=== PATIENT | female | born 1990 | race African-American/Black ===

== ENCOUNTER 2018-12-08 14:41 | Emergency (ER) | payer OTHER ==
[~2018-12-08 14:41] MED LIST: LAM25 PO
== END 2018-12-08 16:20 | disposition left against medical advice (07) ==
LOC: ER 14:41
DX: Z53.21 Procedure and treatment not carried out due to patient leaving prior to being seen by health care provider (principal)

== ENCOUNTER 2018-12-22 23:54 | Emergency (ER) | payer OTHER ==
[~2018-12-22] VITALS: Ht 152.4 cm; Wt 64.3 kg
[2018-12-23 03:57] VITALS: BP 113/71
== END 2018-12-23 04:18 | disposition home or self-care (01) ==
LOC: ER 23:54
DX: F32.9 Major depressive disorder, single episode, unspecified (principal); R45.851 Suicidal ideations; F14.10 Cocaine abuse, uncomplicated; F12.10 Cannabis abuse, uncomplicated; F17.200 Nicotine dependence, unspecified, uncomplicated; Z98.890 Other specified postprocedural states
CPT/HCPCS: 99284

== ENCOUNTER 2019-05-18 18:17 | Emergency (ER) | payer OTHER, MEDICAID ==
[~2019-05-18] VITALS: Ht 152.4 cm; Wt 66.0 kg
[2019-05-18] MEDS ORDERED: ALPRAZOLAM 0.5 MG TABLET PO ONE (20:30)
[2019-05-18 21:24] VITALS: BP 119/68
== END 2019-05-18 21:26 | disposition home or self-care (01) ==
LOC: ER 18:17
DX: F41.9 Anxiety disorder, unspecified (principal); F32.9 Major depressive disorder, single episode, unspecified
CPT/HCPCS: 81025; 99284

== ENCOUNTER 2019-06-19 02:47 | Emergency (ER) | payer OTHER, MEDICAID ==
[~2019-06-19] VITALS: Ht 152.4 cm; Wt 62.0 kg
[2019-06-19 03:31] VITALS: BP 122/73
== END 2019-06-19 05:55 | disposition left against medical advice (07) ==
LOC: ER 02:47
DX: Z53.21 Procedure and treatment not carried out due to patient leaving prior to being seen by health care provider (principal); F31.9 Bipolar disorder, unspecified; F17.200 Nicotine dependence, unspecified, uncomplicated

== ENCOUNTER 2019-08-19 21:51 | Emergency (ER) | payer OTHER, MEDICAID ==
[~2019-08-19] VITALS: Ht 152.4 cm; Wt 66.0 kg
[2019-08-20 01:39] LABS: EOSINOPHILS % 6.9 % (0.0-5.0); HEMOGLOBIN. 12.6 g/dL (12.0-16.0); LYMPHOCYTES % 41.3 % (20.0-50.0); MEAN CORPUSCULAR HEMOGLOBIN 32.1 pg (28.0-32.0); MEAN CORPUSCULAR VOLUME 91.4 fL (81.0-99.0); MEAN PLATELET VOLUME 7.1 fl (7.4-10.4); MONOCYTES % 5.8 % (2.0-8.0); PLATELET 290 x1000/uL (130-400); RED BLOOD CELL COUNT 3.94 mill/uL (4.2-5.4); RED CELL DISTRIBUTION WIDTH 12.6 % (11.6-14.6)
[2019-08-20 01:42] LABS: ETHANOL BLOOD < 10 mg/dL
[2019-08-20 01:44] LABS: CHLORIDE 107 mEq/L (98-107)
[2019-08-20 01:45] LABS: *AMPHETAMINES SCREEN URINE NEGATIVE (NEGATIVE); *BARBITURATES SCREEN URINE NEGATIVE (NEGATIVE); *BENZODIAZEPINES SCREEN URINE NEGATIVE (NEGATIVE); METHADONE URINE SCREEN NEGATIVE (NEGATIVE); OPIATES URINE SCREEN NEGATIVE (NEGATIVE); PHENCYCLIDINE URINE SCREEN NEGATIVE (NEGATIVE)
[2019-08-20 02:10] LABS: *COCAINE SCREEN URINE PRESUMTIVE POSITIVE (NEGATIVE); CANNABINOID URINE SCREEN PRESUMTIVE POSITIVE (NEGATIVE)
[2019-08-20 09:44] VITALS: BP 115/74
== END 2019-08-20 10:03 ==
LOC: ER 21:51
DX: R45.851 Suicidal ideations (principal); F31.9 Bipolar disorder, unspecified; F12.10 Cannabis abuse, uncomplicated; F15.10 Other stimulant abuse, uncomplicated; F14.10 Cocaine abuse, uncomplicated; Z79.899 Other long term (current) drug therapy
CPT/HCPCS: 36415; 80053; 80305; 80307; 80320; 80329; 81025; 85025; 99285; G0480

== ENCOUNTER 2019-12-20 15:51 | Emergency (ER) | payer MEDICARE, MEDICAID, OTHER ==
[~2019-12-20] VITALS: Ht 172.7 cm; Wt 55.0 kg
[2019-12-20] MEDS ORDERED: PENICILLIN G BENZATHINE 2,400,000 UNITS/4ML SYR IM ONE (17:15)
[2019-12-20 17:49] VITALS: BP 117/72
== END 2019-12-20 17:52 | disposition home or self-care (01) ==
LOC: ER 15:51
DX: F41.9 Anxiety disorder, unspecified (principal); F12.10 Cannabis abuse, uncomplicated; Z20.2 Contact with and (suspected) exposure to infections with a predominantly sexual mode of transmission; Z79.899 Other long term (current) drug therapy
CPT/HCPCS: 96372; 99283; J0561

== ENCOUNTER 2020-01-01 12:07 | Emergency (ER) | payer MEDICARE, OTHER, MEDICAID ==
[~2020-01-01] VITALS: Ht 157.5 cm; Wt 82.0 kg
[2020-01-01] MEDS ORDERED: SODIUM CHLORIDE 0.9% 1,000 ML IV ONE (12:26)
[2020-01-01 13:04] LABS: CHLORIDE 109 mEq/L (98-107)
[2020-01-01 13:23] VITALS: BP 112/56
[2020-01-01 13:27] LABS: BASOPHILS % 1.3 % (0.0-2.0); EOSINOPHILS % 2.8 % (0.0-5.0); HEMATOCRIT. 39.7 % (36.0-48.0); HEMOGLOBIN. 13.7 g/dL (12.0-16.0); LYMPHOCYTES % 43.6 % (20.0-50.0); MEAN PLATELET VOLUME 7.7 fl (7.4-10.4); MONOCYTES % 6.2 % (2.0-8.0); NEUTROPHILS % 46.1 % (40.0-76.0); PLATELET 276 x1000/uL (130-400); RED BLOOD CELL COUNT 4.57 mill/uL (4.2-5.4); RED CELL DISTRIBUTION WIDTH 13.6 % (11.6-14.6)
[2020-01-01] MEDS ORDERED: PENICILLIN G BENZATHINE 2,400,000 UNITS/4ML SYR IM ONE (15:00)
== END 2020-01-01 15:50 | disposition home or self-care (01) ==
LOC: ER 12:07
DX: R53.1 Weakness (principal); F31.9 Bipolar disorder, unspecified; F17.200 Nicotine dependence, unspecified, uncomplicated; Z87.42 Personal history of other diseases of the female genital tract
CPT/HCPCS: 36415; 80053; 85025; 96372; 99283; J0561; J7030

== ENCOUNTER 2020-04-20 22:46 | Emergency (ER) | payer MEDICARE, OTHER, MEDICAID ==
[~2020-04-20] VITALS: Ht 170.2 cm; Wt 68.0 kg
[2020-04-21 00:44] LABS: CLARITY URINE CLOUDY (CLEAR); COLOR URINE YELLOW (YELLOW); KETONES URINE NEGATIVE (NEGATIVE); LEUKOCYTE ESTERASE URINE 1+ (NEGATIVE); NITRITE URINE NEGATIVE (NEGATIVE); OCCULT BLOOD URINE NEGATIVE (NEGATIVE); PROTEIN URINE NEGATIVE (NEGATIVE); SPECIFIC GRAVITY URINE 1.021 (1.005-1.030)
[2020-04-21 01:00] LABS: *AMPHETAMINES SCREEN URINE NEGATIVE (NEGATIVE)
[2020-04-21 01:01] LABS: *BARBITURATES SCREEN URINE NEGATIVE (NEGATIVE); *BENZODIAZEPINES SCREEN URINE NEGATIVE (NEGATIVE); *COCAINE SCREEN URINE NEGATIVE (NEGATIVE); METHADONE URINE SCREEN NEGATIVE (NEGATIVE); OPIATES URINE SCREEN NEGATIVE (NEGATIVE); PHENCYCLIDINE URINE SCREEN NEGATIVE (NEGATIVE)
[2020-04-21 01:03] LABS: CANNABINOID URINE SCREEN PRESUMTIVE POSITIVE (NEGATIVE)
[2020-04-21 01:07] LABS: BASOPHILS % 1.1 % (0.0-2.0); EOSINOPHILS % 5.4 % (0.0-5.0); HEMATOCRIT. 36.1 % (36.0-48.0); HEMOGLOBIN. 12.7 g/dL (12.0-16.0); LYMPHOCYTES % 50.7 % (20.0-50.0); MEAN CORPUSCULAR HEMOGLOBIN 32.3 pg (28.0-32.0); MEAN CORPUSCULAR VOLUME 91.6 fL (81.0-99.0); NEUTROPHILS % 36.8 % (40.0-76.0); PLATELET 244 x1000/uL (130-400); RED BLOOD CELL COUNT 3.95 mill/uL (4.2-5.4); RED CELL DISTRIBUTION WIDTH 12.9 % (11.6-14.6)
[2020-04-21 01:14] LABS: CHLORIDE 109 mEq/L (98-107)
[2020-04-21 01:19] LABS: ETHANOL BLOOD < 10 mg/dL
[2020-04-21] MEDS ORDERED: FENTANYL CITRATE/PF 50MCG/ML 2ML VIAL IV ONE (02:00)
[2020-04-21 06:00] VITALS: BP 106/60
== END 2020-04-21 09:45 ==
LOC: ER 22:46
DX: R45.851 Suicidal ideations (principal); F41.9 Anxiety disorder, unspecified; F12.10 Cannabis abuse, uncomplicated; F31.9 Bipolar disorder, unspecified; Z88.8 Allergy status to other drugs, medicaments and biological substances
CPT/HCPCS: 36415; 80053; 80305; 80307; 80320; 80329; 81003; 85025; 93005; 99285; G0480

== ENCOUNTER 2020-11-03 02:17 | Emergency (ER) | payer MEDICARE, OTHER, MEDICAID ==
[~2020-11-03] VITALS: Ht 160 cm; Wt 60.0 kg
[2020-11-03 06:20] LABS: BASOPHILS % 0.4 % (0.0-2.0); EOSINOPHILS % 1.1 % (0.0-5.0); HEMATOCRIT. 39.8 % (36.0-48.0); HEMOGLOBIN. 13.3 g/dL (12.0-16.0); LYMPHOCYTES % 20.6 % (20.0-50.0); MEAN CORPUSCULAR HEMOGLOBIN 30.5 pg (28.0-32.0); MEAN CORPUSCULAR VOLUME 91.2 fL (81.0-99.0); MONOCYTES % 6.4 % (2.0-8.0); NEUTROPHILS % 71.5 % (40.0-76.0); PLATELET 295 x1000/uL (130-400); RED BLOOD CELL COUNT 4.36 mill/uL (4.2-5.4)
[2020-11-03 06:22] LABS: CHLORIDE 110 mEq/L (98-107)
[2020-11-03 06:25] LABS: ETHANOL BLOOD < 10 mg/dL
[2020-11-03 06:33] LABS: HCG SCREEN NEGATIVE
[2020-11-03 07:12] LABS: CLARITY URINE CLOUDY (CLEAR); COLOR URINE YELLOW (YELLOW); KETONES URINE TRACE (NEGATIVE); LEUKOCYTE ESTERASE URINE NEGATIVE (NEGATIVE); NITRITE URINE NEGATIVE (NEGATIVE); OCCULT BLOOD URINE NEGATIVE (NEGATIVE); PH URINE 5.5 (4.5-8.0); PROTEIN URINE NEGATIVE (NEGATIVE); SPECIFIC GRAVITY URINE 1.036 (1.005-1.030)
[2020-11-03 07:21] LABS: *BARBITURATES SCREEN URINE NEGATIVE (NEGATIVE); PHENCYCLIDINE URINE SCREEN NEGATIVE (NEGATIVE)
[2020-11-03 07:22] LABS: *AMPHETAMINES SCREEN URINE PRESUMTIVE POSITIVE (NEGATIVE); *BENZODIAZEPINES SCREEN URINE NEGATIVE (NEGATIVE); *COCAINE SCREEN URINE NEGATIVE (NEGATIVE); CANNABINOID URINE SCREEN PRESUMTIVE POSITIVE (NEGATIVE); METHADONE URINE SCREEN NEGATIVE (NEGATIVE); OPIATES URINE SCREEN NEGATIVE (NEGATIVE)
[2020-11-03] MEDS ORDERED: LORAZEPAM 1MG TABLET PO ONE (09:30)
[2020-11-03] MEDS ORDERED: NICOTINE 21MG PATCH TD ONE (09:30)
[2020-11-03 16:05] VITALS: BP 107/68
== END 2020-11-03 16:06 | disposition home or self-care (01) ==
LOC: ER 02:17
DX: R45.851 Suicidal ideations (principal); F17.200 Nicotine dependence, unspecified, uncomplicated; F15.10 Other stimulant abuse, uncomplicated; F12.10 Cannabis abuse, uncomplicated; Z88.5 Allergy status to narcotic agent; Z88.8 Allergy status to other drugs, medicaments and biological substances; Z98.890 Other specified postprocedural states
CPT/HCPCS: 36415; 80053; 80305; 80307; 80320; 80329; 81003; 81025; 84703; 85025; 93005; 99285; G0480

== ENCOUNTER 2021-03-02 09:04 | Emergency (ER) | payer OTHER, MEDICARE, MEDICAID ==
[~2021-03-02] VITALS: Ht 167.6 cm; Wt 100.0 kg
[2021-03-02 10:14] LABS: CLARITY URINE TURBID (CLEAR); COLOR URINE DARK YELLOW (YELLOW); KETONES URINE TRACE (NEGATIVE); LEUKOCYTE ESTERASE URINE NEGATIVE (NEGATIVE); NITRITE URINE NEGATIVE (NEGATIVE); OCCULT BLOOD URINE 3+ (NEGATIVE); PROTEIN URINE 1+ (NEGATIVE); SPECIFIC GRAVITY URINE 1.031 (1.005-1.030)
[2021-03-02 10:18] LABS: BASOPHILS % 0.5 % (0.0-2.0); EOSINOPHILS % 1.8 % (0.0-5.0); HEMATOCRIT. 39.1 % (36.0-48.0); HEMOGLOBIN. 13.5 g/dL (12.0-16.0); LYMPHOCYTES % 27.4 % (20.0-50.0); MEAN CORPUSCULAR HEMOGLOBIN 30.9 pg (28.0-32.0); MEAN CORPUSCULAR VOLUME 89.5 fL (81.0-99.0); MEAN PLATELET VOLUME 6.7 fl (7.4-10.4); MONOCYTES % 6.8 % (2.0-8.0); NEUTROPHILS % 63.5 % (40.0-76.0); PLATELET 341 x1000/uL (130-400); RED BLOOD CELL COUNT 4.37 mill/uL (4.2-5.4); RED CELL DISTRIBUTION WIDTH 13.6 % (11.6-14.6)
[2021-03-02 10:19] LABS: CHLORIDE 111 mEq/L (98-107)
[2021-03-02 10:29] LABS: ETHANOL BLOOD < 10 mg/dL
[2021-03-02 10:31] LABS: *BARBITURATES SCREEN URINE NEGATIVE (NEGATIVE); *BENZODIAZEPINES SCREEN URINE NEGATIVE (NEGATIVE)
[2021-03-02 10:32] LABS: METHADONE URINE SCREEN NEGATIVE (NEGATIVE); OPIATES URINE SCREEN NEGATIVE (NEGATIVE)
[2021-03-02 10:33] LABS: PHENCYCLIDINE URINE SCREEN NEGATIVE (NEGATIVE)
[2021-03-02 10:40] LABS: *AMPHETAMINES SCREEN URINE PRESUMTIVE POSITIVE (NEGATIVE); *COCAINE SCREEN URINE PRESUMTIVE POSITIVE (NEGATIVE); CANNABINOID URINE SCREEN PRESUMTIVE POSITIVE (NEGATIVE)
[2021-03-02] MEDS ORDERED: CEFTRIAXONE SODIUM 500 MG/VIAL IM ONE (10:45)
[2021-03-02] MEDS ORDERED: DOXYCYCLINE HYCLATE 100MG CAPSULE PO ONE (10:45)
[2021-03-02] MEDS ORDERED: DOXY100C2 MT (11:38)
[2021-03-02] MEDS ORDERED: METR-167 MT (11:38)
[2021-03-02 11:41] VITALS: BP 133/79
[2021-03-04 04:07] LABS: NEISSERIA GONORRHOEAE NAA Negative (Negative)
== END 2021-03-02 11:40 | disposition home or self-care (01) ==
LOC: ER 09:04
DX: N93.9 Abnormal uterine and vaginal bleeding, unspecified (principal); F12.10 Cannabis abuse, uncomplicated; F15.10 Other stimulant abuse, uncomplicated; Z88.6 Allergy status to analgesic agent; Z88.8 Allergy status to other drugs, medicaments and biological substances
CPT/HCPCS: 36415; 80053; 80305; 80307; 80320; 80329; 81003; 81025; 85025; 87491; 87591; 96372; 99283; J0696; Z7610; G0480

== ENCOUNTER 2021-04-04 02:40 | Emergency (ER) | payer MEDICARE, OTHER, MEDICAID ==
[~2021-04-04] VITALS: Ht 162.6 cm; Wt 66.0 kg
[~2021-04-04 02:40] MED LIST changes: +DOXY100C5 MT; +METR-167 MT
[2021-04-04 04:21] LABS: BASOPHILS % 0.4 % (0.0-2.0); EOSINOPHILS % 3.1 % (0.0-5.0); HEMATOCRIT. 37.3 % (36.0-48.0); HEMOGLOBIN. 12.7 g/dL (12.0-16.0); LYMPHOCYTES % 45.4 % (20.0-50.0); MEAN CORPUSCULAR VOLUME 91.3 fL (81.0-99.0); MEAN PLATELET VOLUME 6.3 fl (7.4-10.4); NEUTROPHILS % 44.1 % (40.0-76.0); PLATELET 290 x1000/uL (130-400); RED BLOOD CELL COUNT 4.09 mill/uL (4.2-5.4); RED CELL DISTRIBUTION WIDTH 13.2 % (11.6-14.6)
[2021-04-04 04:29] LABS: CHLORIDE 108 mEq/L (98-107)
[2021-04-04 04:33] LABS: ETHANOL BLOOD < 10 mg/dL
[2021-04-04] MEDS ORDERED: OLANZAPINE 5MG TABLET ODT PO ONE (05:30)
[2021-04-04 09:33] LABS: *BARBITURATES SCREEN URINE NEGATIVE (NEGATIVE); *BENZODIAZEPINES SCREEN URINE NEGATIVE (NEGATIVE)
[2021-04-04 09:35] LABS: METHADONE URINE SCREEN NEGATIVE (NEGATIVE); OPIATES URINE SCREEN NEGATIVE (NEGATIVE); PHENCYCLIDINE URINE SCREEN NEGATIVE (NEGATIVE)
[2021-04-04 09:42] LABS: *AMPHETAMINES SCREEN URINE PRESUMTIVE POSITIVE (NEGATIVE); *COCAINE SCREEN URINE PRESUMTIVE POSITIVE (NEGATIVE); CANNABINOID URINE SCREEN PRESUMTIVE POSITIVE (NEGATIVE)
[2021-04-04 18:00] VITALS: BP 124/67
[2021-04-04] MEDS ORDERED: TOPIRAMATE 25MG TABLET PO SCH (21:00)
[2021-04-05] MEDS ORDERED: OLANZAPINE 5MG TABLET PO SCH (09:00)
== END 2021-04-04 19:28 | disposition left against medical advice (07) ==
LOC: ER 03:11
DX: R45.851 Suicidal ideations (principal); F31.9 Bipolar disorder, unspecified; F20.9 Schizophrenia, unspecified; F17.290 Nicotine dependence, other tobacco product, uncomplicated; F12.10 Cannabis abuse, uncomplicated
CPT/HCPCS: 36415; 80048; 80305; 80307; 80320; 80329; 85025; 93005; 99285; G0480

== ENCOUNTER 2022-11-06 13:16 | Emergency (ER) | payer OTHER, MEDICAID ==
[~2022-11-06] VITALS: Ht 165.1 cm; Wt 64.0 kg
[2022-11-06 13:25] VITALS: BP 147/84
== END 2022-11-06 13:55 | disposition left against medical advice (07) ==
LOC: ER 13:49
DX: F22 Delusional disorders (principal); F41.9 Anxiety disorder, unspecified; F12.90 Cannabis use, unspecified, uncomplicated; F31.9 Bipolar disorder, unspecified; F20.9 Schizophrenia, unspecified; Z88.6 Allergy status to analgesic agent
CPT/HCPCS: 99283

== ENCOUNTER 2024-06-12 08:40 | Emergency (ER) | payer OTHER, MEDICAID ==
[~2024-06-12] VITALS: Ht 152.4 cm; Wt 90.0 kg
[2024-06-12 08:46] VITALS: O2SAT 100
[2024-06-12 09:29] LABS: CHLORIDE 105 mEq/L (98-107); POTASSIUM 3.5 mEq/L (3.5-5.1)
[2024-06-12 09:30] LABS: CARBON DIOXIDE 22 mEq/L (21-32); SODIUM 138 mEq/L (136-145)
[2024-06-12 09:31] LABS: CALCIUM 9.6 mg/dL (8.7-10.4)
[2024-06-12] MEDS: MAGNESIUM/ALUMINUM HYDROXIDE/SIMETHICONE 30ML UDC PO STA (09:32)
[2024-06-12 09:34] LABS: BASOPHILS % 0.3 % (0.0-2.0); EOSINOPHILS % 0.1 % (0.0-5.0); HEMATOCRIT. 40.1 % (36.0-48.0); HEMOGLOBIN. 13.5 g/dL (12.0-16.0); LYMPHOCYTES % 15.7 % (20.0-50.0); MEAN CORPUSCULAR HEMOGLOBIN 30.8 pg (28.0-32.0); MEAN CORPUSCULAR HGB CONC 33.6 g/dL (31.0-37.0); MEAN CORPUSCULAR VOLUME 91.7 fL (81.0-99.0); NEUTROPHILS % 75.9 % (40.0-76.0); PLATELET 250 x1000/uL (130-400); RED BLOOD CELL COUNT 4.37 mill/uL (4.2-5.4); RED CELL DISTRIBUTION WIDTH 13.8 % (11.6-14.6); WHITE BLOOD COUNT 16.8 x1000/uL (4.5-11.0)
[2024-06-12 09:35] LABS: GLUCOSE 117 mg/dL (70-105)
[2024-06-12 09:36] LABS: UREA NITROGEN BLOOD 10 mg/dL (9-23)
[2024-06-12 09:37] LABS: ALANINE AMINOTRANSFERASE 57 IU/L (10-49); ALBUMIN 4.8 g/dL (3.2-4.8); ASPARTATE AMINOTRANSFERASE 38 IU/L (<34)
[2024-06-12 09:38] LABS: BILIRUBIN DIRECT 0.1 mg/dL (<=3.0); BILIRUBIN TOTAL 0.5 mg/dL (0.1-1.0); PROTEIN TOTAL 7.7 g/dL (6.0-8.3)
[2024-06-12] MEDS: ONDANSETRON 4MG ODT PO STA (09:47)
[2024-06-12 09:58] LABS: HCG SCREEN NEGATIVE
[2024-06-12] MEDS ORDERED: PIPERACILLIN/TAZO 3.375G/50ML 50 ML IV STA (11:32)
[2024-06-12] MEDS ORDERED: MORPHINE SULFATE 4 MG/ML INJ (FOR IV/IM USE) IV ONE ×2 (11:45→16:15)
[2024-06-12] MEDS: KETOROLAC 15MG/ML VIAL IV ONE (13:19)
[2024-06-12] MEDS: PIPERACILLIN/TAZO 3.375G/50ML 50 ML IV NR (13:19)
[2024-06-12 16:38] VITALS: BP 137/67; PULSE 98; RESP 16; TEMP 37.11408; O2SAT 100
== END 2024-06-12 17:18 | disposition short-term general hospital (02) ==
LOC: ER 08:40 → CANBEDREQ 14:32 → ER 17:18
DX: K37 Unspecified appendicitis (principal); Z88.6 Allergy status to analgesic agent; Z88.5 Allergy status to narcotic agent; Z88.8 Allergy status to other drugs, medicaments and biological substances; Z86.59 Personal history of other mental and behavioral disorders
CPT/HCPCS: 99285; 74176; 96365; 96375; 80076; 80048; 84703; 83690; 85025; 36415; Q0162; J1885; J2543

== ENCOUNTER 2024-12-15 05:41 | Emergency (ER) | payer OTHER, MEDICAID ==
[~2024-12-15] VITALS: Ht 152.4 cm; Wt 73.0 kg
[2024-12-15 05:47] VITALS: O2SAT 98
[2024-12-15 06:30] LABS: BASOPHILS % 0.7 % (0.0-2.0); EOSINOPHILS % 0.7 % (0.0-5.0); HEMATOCRIT. 39.1 % (36.0-48.0); HEMOGLOBIN. 13.7 g/dL (12.0-16.0); LYMPHOCYTES % 38.8 % (20.0-50.0); MEAN CORPUSCULAR HEMOGLOBIN 31.9 pg (28.0-32.0); MEAN CORPUSCULAR VOLUME 91.1 fL (81.0-99.0); MEAN PLATELET VOLUME 7.1 fl (7.4-10.4); MONOCYTES % 6.2 % (2.0-8.0); NEUTROPHILS % 53.6 % (40.0-76.0); PLATELET 306 x1000/uL (130-400); RED CELL DISTRIBUTION WIDTH 13.7 % (11.6-14.6); WHITE BLOOD COUNT 9.3 x1000/uL (4.5-11.0)
[2024-12-15 06:41] LABS: CHLORIDE 107 mEq/L (98-107); POTASSIUM 3.5 mEq/L (3.5-5.1); SODIUM 140 mEq/L (136-145)
[2024-12-15 06:42] LABS: CALCIUM 9.9 mg/dL (8.7-10.4); CARBON DIOXIDE 22 mEq/L (21-32)
[2024-12-15 06:43] LABS: HCG SCREEN NEGATIVE; PROTHROMBIN TIME 10.8 sec (9.6-11.0)
[2024-12-15 06:47] LABS: GLUCOSE 107 mg/dL (70-105); UREA NITROGEN BLOOD 9 mg/dL (9-23)
[2024-12-15 07:05] LABS: TROPONIN I HIGH SENSITIVITY < 4 ng/L (3.0-34)
[2024-12-15] MEDS ORDERED: IBUP-2029 MT (07:13)
[2024-12-15 07:48] VITALS: BP 144/94; PULSE 77; RESP 20; TEMP 36.7; O2SAT 99
== END 2024-12-15 07:53 | disposition home or self-care (01) ==
LOC: ER 05:41
DX: R07.89 Other chest pain (principal); F20.9 Schizophrenia, unspecified; F31.9 Bipolar disorder, unspecified; Z87.891 Personal history of nicotine dependence; Z79.899 Other long term (current) drug therapy; Z88.8 Allergy status to other drugs, medicaments and biological substances
CPT/HCPCS: 36415; 71045; 80048; 84484; 84703; 85025; 93005; 99285